=== PATIENT | male | born 1985 | race Caucasian/White ===

== ENCOUNTER 2025-04-28 22:03 | Emergency (ER) | payer MEDICAID ==
[~2025-04-28] VITALS: Ht 190.5 cm; Wt 84.2 kg
[2025-04-28 22:18] VITALS: BP 112/67; PULSE 95; RESP 16; O2SAT 99
[2025-04-28] MEDS ORDERED: HYDR-3686 PO (23:30)
--- NOTE | 2025-04-28 23:31 | Physician Documentation ---
History of Present Illness ~ Chief Complaint: Anxiety Stated Complaint: EVMIGUEL Time Seen by MD: 23:25 HPI Patient is seen today with complaints of being brought in by the ambulance. Patient has very tangential thoughts and scattered thoughts. Patient has very difficult to follow up the process and appears to be an unreliable historian. Patient states that he called the ambulance to bring him in to the hospital because he has states he woke up. Patient also complains of alcohol and drug use stating he drinks during the day and also takes opiates during the day. Patient currently denies any chest pain or shortness of breath or abdominal pain or nausea, vomiting, diarrhea. Medication Reconciliation Allergies: Coded Allergies: azithromycin (Verified Allergy, Unknown, 04/28/25) Review of Systems Constitutional: Denies: chills, fever, weakness Eyes: Denies: pain, blurred vision ENT: Denies: ear pain, nose pain, throat pain, mouth pain Respiratory: Denies: cough, shortness of breath Cardiovascular: Denies: chest pain, palpitations Gastrointestinal: Denies: abdominal pain, nausea, vomiting Genitourinary: Denies: burning, dysuria Male Genitalia: Denies: penile discharge, testicular pain Neurological: Denies: headache, dizziness Musculoskeletal: Denies: pain, swelling Integumentary: Denies: rash, lesions Allergic/Immunologic: Denies: hives, itching Hematologic/Lymphatic: Denies: no symptoms reported Psychiatric: Denies: depression, anxiety Physical Exam Vital Signs: Temperature: 97.6, Source: Oral, Heart Rate: 95, Respiratory Rate: 16, BP: 112/67, Pulse Oximetry: 99, Weight: 84.230 Oxygen Flow Rate: 0 Progress Results/Orders Results/Orders Vital Signs 04/28/25 22:18 Temp 97.6 Pulse 95 Resp 16 B/P (MAP) 112/67 Pulse Ox 99 O2 Flow Rate 0 Medical Decision Making Findings Patient is seen today with complaints of being brought in by the ambulance. Patient has very tangential thoughts and scattered thoughts. Patient has very difficult to follow up the process and appears to be an unreliable historian. Patient states that he called the ambulance to bring him in to the hospital because he has states he woke up. Patient also complains of alcohol and drug use stating he drinks during the day and also takes opiates during the day. Patient currently denies any chest pain or shortness of breath or abdominal pain or nausea, vomiting, diarrhea. Patient was given prescription for hydroxyzine for anxiety to be taken as indicated. Patient is requesting a ride back to the [place]. Patient will return to ED with any worsening, concerning or changing symptoms. Departure Disposition: 01 HOME / SELF CARE / HOMELESS Impression: Primary Impression: Anxiety Additional Impressions: Alcohol abuse Opiate abuse, continuous Condition: Improved Discharge Instructions: Panic Attack Additional Instructions: Patient was given prescription for hydroxyzine for anxiety to be taken as indicated. Patient is requesting a ride back to the [place]. Patient will return to ED with any worsening, concerning or changing symptoms. Referrals: NO PRIMARY CARE PROVIDER (PCP) Prescriptions Hydroxyzine Hcl* (Atarax*) 25 Mg Tablet 1 TAB PO Q12H for anxiety for 5 Days, #10 TAB Prov: SEGUNDO GANN 04/28/25 Signature Scribe Signature: No scribe Attestation: No scribe SEGUNDO GANN Apr 28, 2025 23:31
[2025-04-28 23:40] VITALS: TEMP 97.6
== END 2025-04-28 23:45 | disposition home or self-care (01) ==
LOC: ER 22:04
DX: F41.9 Anxiety disorder, unspecified (principal); F10.10 Alcohol abuse, uncomplicated; F11.10 Opioid abuse, uncomplicated; Z88.1 Allergy status to other antibiotic agents
CPT/HCPCS: 99283